=== PATIENT | female | born 1960 | race Caucasian/White ===

== ENCOUNTER 2016-09-29 13:33 | Emergency (ER) | payer MEDICAID, OTHER | END 2016-09-29 17:38 | disposition home or self-care (01) | LOC: ER 13:33 | DX: S39.011A Strain of muscle, fascia and tendon of abdomen, initial encounter (principal); F17.210 Nicotine dependence, cigarettes, uncomplicated | CPT/HCPCS: 36415; 76705; 80053; 81003; 83690; 85025 ==